=== PATIENT | female | born 1940 | race African-American/Black ===

== ENCOUNTER 2019-06-18 09:37 | Emergency (ER) | payer MEDICARE, OTHER ==
[~2019-06-18] VITALS: Ht 157.5 cm; Wt 62.0 kg
[2019-06-18] MEDS ORDERED: METF500T17 PO (09:48)
[2019-06-18] MEDS ORDERED: ASPI-496 PO (09:48)
[2019-06-18] MEDS ORDERED: SIMV10TA3 PO (09:48)
[2019-06-18] MEDS ORDERED: LISI-167 PO (09:48)
--- NOTE | 2019-06-18 09:48 | NUR ---
PATIENT BROUGHT IN BY KEISHA WITH CHIEF COMPLAINT OF GLF, "TRIPPED WHILE WALKING IN [facility]". REPORTS NO LOC, DIZZINESS, CP, N/V, SOB. THE PATIENT IS ALERT, ORIENTED, WARM, & DRY. LACERATION NOTED ABOVE RIGHT EYE- BLEEDING CONTROLLED.
[2019-06-18] MEDS ORDERED: LIDOCAINE-MPF 1%, 5ML ONE (09:51)
[2019-06-18] MEDS ORDERED: LIDOCAINE 1%-EPI 1:100K, 20ML INFIL ONE (10:00)
--- NOTE | 2019-06-18 10:54 | NUR ---
Berta MATAMOROS AT BEDSIDE FOR SUTURE PLACEMENT
[2019-06-18 10:55] VITALS: BP 183/71
--- NOTE | 2019-06-18 11:08 | NUR ---
ICE PACK PROVIDED
== END 2019-06-18 11:26 | disposition home or self-care (01) ==
LOC: ED 11:00
DX: S01.81XA Laceration without foreign body of other part of head, initial encounter (principal); I10 Essential (primary) hypertension; E11.9 Type 2 diabetes mellitus without complications; E78.00 Pure hypercholesterolemia, unspecified; W18.30XA Fall on same level, unspecified, initial encounter; Y93.89 Activity, other specified; Y92.59 Other trade areas as the place of occurrence of the external cause; Y99.8 Other external cause status
CPT/HCPCS: 12013; 70450; 70486; 99284; J3490